=== PATIENT | female | born 1995 | race Caucasian/White ===

== ENCOUNTER 2017-04-23 17:40 | Emergency (ER) | payer OTHER ==
[2017-04-23] MEDS ORDERED: NS 1,000 ML IV ONE ×2 (18:10)
[2017-04-23] MEDS ORDERED: PROMETHAZINE HCL 25 MG/ML INJ IVP ONE (18:11)
--- NOTE | 2017-04-23 18:14 | EDPHY ---
H & P Time Seen by Provider: 04/23/17 17:59 HPI/ROS: CHIEF COMPLAINT: Abdominal pain nausea and vomiting HISTORY OF PRESENT ILLNESS: Patient had Chick Darrell-A last night, felt well and woke up this morning at 10:30 a.m.. Around 11:00 a.m. she had breakfast in the started getting abdominal cramping followed by multiple episodes of nausea and vomiting. Was not helped by Pepto-Bismol. She has had previous history of syncope and around 3:00 p.m. when she was vomiting in the bathroom she felt lightheaded like she was going to pass out and ended up fainting in the bedroom. Currently she feels like she has nausea and can't take oral fluids. No diarrhea. Has been a little bit shaky. Associated with abdominal cramping bilateral at the umbilicus on both sides but no urinary or vaginal symptoms. Denies . REVIEW OF SYSTEMS: Eye: no change in vision ENT: no sore throat Cardiac: no chest pain or syncope Pulmonary: no cough or SOB Abdomen: HPI Musculoskeletal: no back pain Skin: no rash Neuro: no headache Constitutional: no fever : no urinary symptoms A comprehensive 10 point review of systems is otherwise negative aside from elements mentioned in the history of present illness. PAST MEDICAL HISTORY: Anxiety and hypothyroid Social history: Student, no recent alcohol or foreign travel. General Appearance: Alert and conversant, cooperative. Eyes: No scleral icterus. ENT, Mouth: Dry mucous membranes. Respiratory: Normal respiratory effort, breath sounds equal, lungs are clear to auscultation. Cardiovascular: Regular rate and rhythm. Gastrointestinal: Abdomen is soft and non tender. No rebound or guarding. No right upper quadrant tenderness or Hua sign. No tenderness at McBurney's point. Neurological: Alert and oriented x3. Normally conversant. Face symmetric, normal movement and sensation in all extremities. Skin: Warm and dry, no rashes. Musculoskeletal: No peripheral edema and no joint swelling. Psychiatric: Not agitated. Emergency Department course/MDM: Benign abdominal exam, at this point I think ectopic or appendicitis or UTI or bowel obstruction are unlikely. I think PID is unlikely. Phenergan 12.5 mg IV because of Lexapro, 2 L IV normal saline for nausea and vomiting. Plan for serial exams. CBC chemistry and test. 1855: After IV Phenergan heart rate is 50 blood pressure is 102 systolic, patient feels dizzy and lightheaded. Plan for IV normal saline hydration and 12 lead EKG. 1951: 2nd EKG shows sinus rhythm, patient feels better, taking oral fluids. Earlier rhythm likely vagal. Smoking Status: Never smoked Constitutional: Initial Vital Signs Temperature (C) 36.5 C 04/23/17 17:47 Heart Rate 65 04/23/17 17:47 Respiratory Rate 18 04/23/17 17:47 Blood Pressure 127/79 H 04/23/17 17:47 O2 Sat (%) 98 04/23/17 17:47 O2 Delivery Mode Room Air Allergies/Adverse Reactions: No Known Allergies Allergy (Unverified 04/23/17 17:50) Home Medications: Medication Instructions Recorded Lexapro 04/23/17 Synthroid 04/23/17 Medical Decision Making - Diagnostics EKG Interpretation: 12-lead EKG interpreted by me; official reading is in trace master. My interpretation is accelerated junctional rhythm at 65. 12-lead EKG interpreted by me; official reading is in trace master. My interpretation is sinus rhythm rate 75, 2nd EKG. Most likely 1st 1 was vasovagal. Differential Diagnosis: Differential diagnosis considered for nausea and vomiting including but not limited to gastroenteritis, gastritis, appendicitis, and medication side effect. - Data Points Laboratory Results: Laboratory Results 04/23/17 18:34 04/23/17 18:34 04/23/17 04/23/17 04/23/17 18:34 18:34 18:34 WBC 17.48 10^3/uL H 10^3/uL (3.80-9.50) RBC 4.56 10^6/uL 10^6/uL (4.18-5.33) Hgb 16.1 g/dL g/dL (12.6-16.3) Hct 43.6 % % (38.0-47.0) MCV 95.6 fL fL (81.5-99.8) MCH 35.3 pg H pg (27.9-34.1) MCHC 36.9 g/dL H g/dL (32.4-36.7) RDW 11.9 % % (11.5-15.2) Plt Count 217 10^3/uL 10^3/uL (150-400) MPV 9.9 fL fL (8.7-11.7) Neut % (Auto) 89.4 % H % (39.3-74.2) Lymph % (Auto) 4.5 % L % (15.0-45.0) [place] % (Auto) 4.9 % % (4.5-13.0) Eos % (Auto) 0.2 % L % (0.6-7.6) Baso % (Auto) 0.4 % % (0.3-1.7) Nucleat RBC Rel Count 0.0 % % (0.0-0.2) Absolute Neuts (auto) 15.64 10^3/uL H 10^3/uL (1.70-6.50) Absolute Lymphs (auto) 0.78 10^3/uL L 10^3/uL (1.00-3.00) Absolute Monos (auto) 0.85 10^3/uL H 10^3/uL (0.30-0.80) Absolute Eos (auto) 0.04 10^3/uL 10^3/uL (0.03-0.40) Absolute Basos (auto) 0.07 10^3/uL 10^3/uL (0.02-0.10) Absolute Nucleated RBC 0.00 10^3/uL 10^3/uL (0-0.01) Immature Gran % 0.6 % % (0.0-1.1) Immature Gran # 0.10 10^3/uL 10^3/uL (0.00-0.10) Sodium 136 mEq/L mEq/L (134-144) Potassium 3.9 mEq/L mEq/L (3.5-5.2) Chloride 102 mEq/L mEq/L (97-110) Carbon Dioxide 22 mEq/l mEq/l (22-31) Anion Gap 12 mEq/L mEq/L (8-16) BUN 13 mg/dL mg/dL (7-23) Creatinine 0.9 mg/dL mg/dL (0.6-1.0) Estimated GFR > 60 Glucose 95 mg/dL mg/dL (70-100) Calcium 10.1 mg/dL mg/dL (8.5-10.4) Beta HCG, Qual NEGATIVE Medications Given: Discontinued Medications Sodium Chloride (Ns) 1,000 mls @ 0 mls/hr IV EDNOW ONE; Wide Open PRN Reason: Protocol Stop: 04/23/17 18:11 Last Admin: 04/23/17 18:45 Dose: 1,000 mls Sodium Chloride (Ns) 1,000 mls @ 0 mls/hr IV EDNOW ONE; Wide Open PRN Reason: Protocol Stop: 04/23/17 18:11 Last Admin: 04/23/17 18:45 Dose: 1,000 mls Promethazine HCl (Phenergan) 12.5 mg IVP EDNOW ONE Stop: 04/23/17 18:12 Last Admin: 04/23/17 18:46 Dose: 12.5 mg Departure - Departure Disposition: Home, Routine, Self-Care Clinical Impression: Dehydration Nausea & vomiting Qualifiers: Vomiting type: unspecified Vomiting Intractability: non-intractable Qualified Code(s): R11.2 - Nausea with vomiting, unspecified Condition: Good Instructions: Acute Nausea and Vomiting (ED) Additional Instructions: You need to return to the emergency department immediately if you develop worsening or severe pain, fever, vomiting or you are not completely better in 8- 12 hours. Referrals: TEJAL DIGGS [Other] - As per Instructions
[2017-04-23 18:42] LABS: % IMMATURE GRANULYOCYTES 0.6 % (0.0-1.1); ADD DIFF? NO; ADD MORPH? NO; ADD SCAN? NO; ATYPICAL LYMPHOCYTE FLAG 0 (0-99); FRAGMENT RBC FLAG 0 (0-99); HEMATOCRIT 43.6 % (38.0-47.0); HEMOGLOBIN 16.1 g/dL (12.6-16.3); LEFT SHIFT FLG 0 (0-99); LIPEMIA HEMOLYSIS FLAG 90 (0-99); MEAN CELL HEMOGLOBIN 35.3 pg (27.9-34.1); MEAN CELL HEMOGLOBIN CONCENTR. 36.9 g/dL (32.4-36.7); MEAN CELL VOLUME 95.6 fL (81.5-99.8); MEAN PLATELET VOLUME 9.9 fL (8.7-11.7); PLATELET CLUMPS FLAG 0 (0-99); PLATELET COUNT 217 10^3/uL (150-400); RED BLOOD CELL COUNT 4.56 10^6/uL (4.18-5.33); RED CELL DISTRIBUTION WIDTH 11.9 % (11.5-15.2)
--- NOTE | 2017-04-23 19:03 | CPEKG ---
Heart Rate: 65 RR Interval: 923 QRSD Interval: 102 QT Interval: 456 QTC Interval: 475 QRS [place]: 67 T Wave [place]: 27 EKG Severity - ABNORMAL ECG - EKG Impression: ACCELERATED JUNCTIONAL ESCAPE RHYTHM EKG Impression: PROBABLE LEFT VENTRICULAR HYPERTROPHY Electronically Signed By: Wesley Mckinnon 23-Apr-2017 19:19:21
[2017-04-23 19:10] LABS: ANION GAP 12 mEq/L (8-16); CALCIUM 10.1 mg/dL (8.5-10.4); CARBON DIOXIDE 22 mEq/l (22-31); CHLORIDE 102 mEq/L (97-110); CREATININE 0.9 mg/dL (0.6-1.0); GLOMERULAR FILTRATION RATE > 60; GLUCOSE 95 mg/dL (70-100); POTASSIUM 3.9 mEq/L (3.5-5.2); SODIUM 136 mEq/L (134-144)
--- NOTE | 2017-04-23 19:48 | CPEKG ---
Heart Rate: 75 RR Interval: 800 QRSD Interval: 90 QT Interval: 420 QTC Interval: 470 QRS [place]: 71 T Wave [place]: 37 EKG Severity - NORMAL ECG - EKG Impression: SINUS RHYTHM Electronically Signed By: Wesley Mckinnon 23-Apr-2017 19:53:01
[2017-04-23 19:54] VITALS: BP 119/71; PULSE 72; RESP 16; TEMP 97.5; O2SAT 100
== END 2017-04-23 20:17 | disposition home or self-care (01) ==
DX: E86.0 Dehydration (principal); E86.9 Volume depletion, unspecified
CPT/HCPCS: 96374; J2550

== ENCOUNTER 2017-06-06 14:55 | Emergency (ER) | payer OTHER ==
--- NOTE | 2017-06-06 17:11 | EDPHY ---
H & P Time Seen by Provider: 06/06/17 17:02 HPI/ROS: CHIEF COMPLAINT: Foreign body in rectum HISTORY OF PRESENT ILLNESS: Patient was using a small which she terms a silicone object which lodged in her rectum last night about 24 hours ago. She had a bowel movement afterwards but could not find it wondered if it is still in there. Does not feel rectal foreign body sensation. No fever or chills and no abdominal pain no vomiting. No rectal bleeding. REVIEW OF SYSTEMS: As above PAST MEDICAL HISTORY: Thyroid Social history: Here with a friend General Appearance: Alert and conversant, cooperative. Afebrile, abdomen soft and nontender. Emergency Department course/MDM: KUB x-ray ordered. She describes it as no sharp edges, only about 2 inches long but 1 inch in diameter, her last menstrual period was 2 weeks ago, denies . Rectal exam performed with [employer], shows no foreign body in the rectum. 1800: Identical object brought in from home and x-rayed which is verified as radiopaque. KUB shows no foreign body. 1819: Per Dr. Mast probably in the sigmoid, discussed with Jamil. He will consult on the patient. At 6:32 p.m. discussed with the patient probable need for sigmoidoscopy tonight. 2016: Seen by Dr. Negron in ED who requests CT abdomen and pelvis to evaluate for foreign object. 2131: CT definitively negative per Justo; no intra-abdominal foreign body. 2140: Discussed with radha Negron and see Dr. Negron tomorrow in office. Smoking Status: Never smoked Constitutional: Initial Vital Signs Temperature (C) 36.6 C 06/06/17 14:56 Heart Rate 92 06/06/17 14:56 Respiratory Rate 16 06/06/17 14:56 Blood Pressure 114/86 H 06/06/17 14:56 O2 Sat (%) 96 06/06/17 14:56 O2 Delivery Mode Room Air Allergies/Adverse Reactions: No Known Allergies Allergy (Unverified 04/23/17 17:50) Home Medications: Medication Instructions Recorded Lexapro 04/23/17 Synthroid 04/23/17 MDM/Departure - MDM Imaging Results: Imaging Impressions Abdomen/Pelvis CT 06/06/17 20:17 Impression: 1. No radiopaque foreign body in the colon or rectosigmoid colon. 2. No bowel obstruction. Findings and recommendations discussed with Emergency Department physician, Wesley Mckinnon M.D., at 2121 hours, on June 06, 2017. Final report concurs with initial preliminary interpretation. Attention: This CT examination is specifically designed to evaluate patients who are clinically suspected of having acute obstructive uropathy. This examination does not use radiographic contrast, and as such, provides only a limited evaluation of the abdomen, pelvis, and retroperitoneum. If there is further clinical suspicion for pathological conditions other than obstructive uropathy, a complete CT evaluation of the abdomen and pelvis utilizing intravenous, oral, and rectal contrast should be considered. - Depart Disposition: Home, Routine, Self-Care Clinical Impression: Normal rectal exam Condition: Good Instructions: Rectal Foreign Body (ED) Additional Instructions: Return for abdominal pain, fever, vomiting, rectal bleeding. Stand Alone Forms: School Excuse Referrals: TEJAL HERRERA [Other] - As per Instructions Rizwan Negron MD [Medical Doctor] - 1 day without fail (Dr. Negron has requested that you please see him in the office tomorrow.)
[2017-06-06] MEDS ORDERED: BUPIVACAINE 0.5% 30 ML SDV ONE (21:16)
[2017-06-06] MEDS ORDERED: HYDROGEN PEROXIDE 236 ML BOTTLE TP ONE (21:16)
[2017-06-06] MEDS ORDERED: METHYLENE BLUE 0.5% 50 MG/10 ML AMP ONE (21:17)
[2017-06-06 21:39] VITALS: BP 142/85; RESP 16; O2SAT 95
[2017-06-06 21:59] VITALS: PULSE 84; TEMP 97.5
--- NOTE | 2017-06-07 12:34 | GCON ---
[f rep st] CONSULTATION ER CONSULTATION DATE OF CONSULTATION: 06/06/2017 Patient is a 22-year-old female who came to the ER with reported possible foreign body object up her rectum. The patient has had approximately 24 hours ago, she was using this in a sexual encounter in her rectum and has lost the object and feels it is retained in her rectum. This is not palpable on a 2-way abdomen x-ray, although the radiology reads the report as a possible foreign body in the sigmo id. It was not palpable on rectal exam or abdominal physical exam. She is having no particular pain . No fever and specifically no free air on abdominal x-ray. PAST MEDICAL HISTORY: Includes hypothyroidism and wisdom teeth extraction. REVIEW OF SYSTEMS: Negative on a full 10-point review of systems. MEDICATIONS: Synthroid and she has an IUD in place. FAMILY HISTORY: Noncontributory. ALLERGIES: None. PHYSICAL EXAMINATION: GENERAL: Reveals an alert, healthy 22-year-old female in no acute distress. HEAD/NECK: Negative for icterus, adenopathy, thyromegaly. Pupils are normal. NECK: Supple. CHEST : Clear and symmetric. CARDIAC: Reveals a regular rhythm. ABDOMEN: Soft and nontender with no pa lpable masses. No organomegaly and no hernias. No tenderness. RECTAL: Exam was done by the ER doc tor with no palpable foreign bodies being found. EXTREMITIES: Benign with full range of motion, ful l pulses. SKIN: Intact. NEUROLOGIC: Exam is symmetric and physiologic. IMPRESSION: Possible rectal foreign body, although this is unclear to me with no pain. No palpable foreign body and a 2-way abdominal x-ray does not show a foreign body to my reading. PLAN: A CT scan to confirm diagnosis prior to colonoscopy in the operating room and/or laparotomy. The risks and options have been fully discussed with the patient, who wishes to proceed. /[id number]/MODL
== END 2017-06-06 22:00 | disposition home or self-care (01) ==
DX: Z03.89 Encounter for observation for other suspected diseases and conditions ruled out (principal)
CPT/HCPCS: J0171; Q9968